=== PATIENT | male | born 1995 | race Caucasian/White ===

== ENCOUNTER 2020-07-23 14:07 | Emergency (ER) | payer OTHER ==
[2020-07-23 14:37] VITALS: BP 157/81; PULSE 88; BMI 28.1
[2020-07-23 14:48] VITALS: TEMP 97.3
== END 2020-07-23 15:16 | disposition home or self-care (01) ==
LOC: JERFT 14:07
DX: L02.415 Cutaneous abscess of right lower limb (principal)
CPT/HCPCS: 99282-25

== ENCOUNTER 2020-08-23 06:18 | Emergency (ER) | payer OTHER ==
[2020-08-23 06:52] VITALS: BP 130/70; PULSE 90; TEMP 97.6; BMI 28.1
[2020-08-23] MEDS ORDERED: KETOROLAC TROMETHAMINE 60 MG/2 ML VIAL IM ONE (07:17)
[2020-08-23] MEDS ORDERED: KETOROLAC TROMETHAMINE 60 MG/2 ML VIAL ONE (07:34)
== END 2020-08-23 08:35 | disposition home or self-care (01) ==
LOC: JER 06:18
PROC: 3E0233Z Introduction of Anti-inflammatory into Muscle, Percutaneous Approach (ICD-10-PCS; principal; 2020-08-23)
DX: M25.512 Pain in left shoulder (principal); S43.102A Unspecified dislocation of left acromioclavicular joint, initial encounter
CPT/HCPCS: 73030-TC-LT-FY; 99284-25

== ENCOUNTER 2020-12-01 08:46 | Emergency (ER) | payer OTHER ==
[2020-12-01 08:55] VITALS: BP 137/78; PULSE 76; TEMP 98.8; BMI 28.1
[2020-12-01] MEDS ORDERED: KETOROLAC TROMETHAMINE 30 MG/1 ML VIAL IM ONE (09:22)
[2020-12-01] MEDS ORDERED: CYCLOBENZAPRINE HCL 10 MG TABLET (FP) PO ONE (09:22)
[2020-12-01] MEDS ORDERED: CYCLOBENZAPRINE HCL 10 MG TABLET (FP) ONE (09:30)
[2020-12-01] MEDS ORDERED: KETOROLAC TROMETHAMINE 30 MG/1 ML VIAL ONE (09:30)
== END 2020-12-01 09:36 | disposition home or self-care (01) ==
LOC: JERFT 08:46
PROC: 3E0233Z Introduction of Anti-inflammatory into Muscle, Percutaneous Approach (ICD-10-PCS; principal; 2020-12-01)
DX: M54.5 Low back pain (principal)
CPT/HCPCS: 99284-25

== ENCOUNTER 2021-02-19 19:03 | Emergency (ER) | payer OTHER ==
[2021-02-19 19:46] VITALS: BP 130/72; PULSE 98; TEMP 98.3; BMI 28.1
[2021-02-19] MEDS ORDERED: IBUPROFEN 600 MG TABLET (FP) PO ONE ×2 (20:05→20:33)
== END 2021-02-19 21:29 | disposition home or self-care (01) ==
LOC: JERFT 19:03 → JER 19:03 → JERFT 21:29
DX: M25.552 Pain in left hip (principal)
CPT/HCPCS: 73523-TC-FY; 99283-25

== ENCOUNTER 2023-02-08 21:27 | Emergency (ER) | payer OTHER ==
[2023-02-08 21:35] VITALS: BP 124/79; PULSE 93; RESP 18; TEMP 98.2; BMI 28.1
== END 2023-02-09 | disposition home or self-care (01) ==
LOC: JERFT 21:27
DX: S83.411A Sprain of medial collateral ligament of right knee, initial encounter (principal); M25.561 Pain in right knee; W19.XXXA Unspecified fall, initial encounter; Y93.9 Activity, unspecified; Y92.9 Unspecified place or not applicable
CPT/HCPCS: 73562-TC-RT-FY; 99283-25

== ENCOUNTER 2023-07-29 19:06 | Emergency (ER) | payer OTHER ==
[2023-07-29 19:33] VITALS: BP 123/64; PULSE 77; RESP 20; TEMP 98.3; BMI 27.3
[2023-07-29] MEDS ORDERED: ACETAMINOPHEN 325 MG TABLET (FP) PO ONE (19:47)
[2023-07-29] MEDS ORDERED: ACETAMINOPHEN 325 MG TABLET (FP) ONE (20:06)
== END 2023-07-29 21:00 | disposition home or self-care (01) ==
LOC: JER 19:06
DX: M25.571 Pain in right ankle and joints of right foot (principal); R22.41 Localized swelling, mass and lump, right lower limb
CPT/HCPCS: 73610-TC-RT-FY; 73630-TC-RT-FY; 99283-25

== ENCOUNTER 2024-05-07 18:40 | Emergency (ER) | payer OTHER ==
[2024-05-07 19:00] VITALS: BP 142/77; PULSE 83; RESP 17; TEMP 97.6; BMI 26.6
[2024-05-07] MEDS ORDERED: ACETAMINOPHEN 500 MG TABLET (FP) PO ONE (19:16)
[2024-05-07] MEDS ORDERED: ACETAMINOPHEN 500 MG TABLET (FP) ONE (19:21)
== END 2024-05-07 19:40 | disposition home or self-care (01) ==
LOC: JERFT 18:40
DX: M79.671 Pain in right foot (principal)
CPT/HCPCS: 99283-25

== ENCOUNTER 2024-11-28 13:14 | Emergency (ER) | payer OTHER ==
[2024-11-28 13:21] VITALS: BP 129/69; PULSE 77; RESP 20; TEMP 97.6; BMI 28.2
== END 2024-11-28 14:30 | disposition home or self-care (01) ==
LOC: JERFT 13:14
PROC: 2W3CX1Z Immobilization of Right Lower Arm using Splint (ICD-10-PCS; principal; 2024-11-28)
DX: S62.320D Displaced fracture of shaft of second metacarpal bone, right hand, subsequent encounter for fracture with routine healing (principal); W22.8XXA Striking against or struck by other objects, initial encounter; Y99.0 Civilian activity done for income or pay
CPT/HCPCS: 73130-TC-RT-FY; 99283-25

== ENCOUNTER 2025-02-27 23:31 | Emergency (ER) | payer OTHER ==
[2025-02-27 23:38] VITALS: BP 129/83; PULSE 71; RESP 22; TEMP 98.2; BMI 25.0
[2025-02-28] MEDS: SODIUM CHLORIDE 0.9% 500 ML INFUS.BAG IV ONE (00:14)
[2025-02-28 00:57] LABS: ABSOLUTE IMMATURE GRANULOCYTES 0.02 x10^3/uL (0.0-0.031); BASOPHILS # 0.05 x10^3/uL (0.01-0.08); EOSINOPHIL % 3.4 % (0.8-7.0); EOSINOPHILS # 0.21 x10^3/uL (0.04-0.54); MCHC 34.0 g/dl (32.3-36.5); MEAN CELL VOLUME 93.5 fl (79.0-92.2); MEAN PLT VOLUME 9.6 fl (9.4-12.4); MONOCYTE # 0.44 x10^3/uL (0.30-0.82); MONOCYTE % 7.1 % (5.3-12.2); RDW 11.9 % (11.9-15.3)
[2025-02-28 01:16] LABS: GLUCOSE,RANDOM 58.0 mg/dL (74-106); TOT PROT 7.4 g/dl (6.4-8.2)
[2025-02-28 01:17] LABS: CO2 26.0 mmol/L (21-32)
[2025-02-28 01:18] LABS: ALK PHOS 79.0 U/L (40-150)
[2025-02-28 01:21] LABS: SGOT/AST 31.0 U/L (5-34); SGPT/ALT 30.0 U/L (0-55)
[2025-02-28 01:22] LABS: CREATININE 1.5 mg/dL (0.55-1.3)
== END 2025-02-28 01:43 | disposition home or self-care (01) ==
LOC: JER 23:31
DX: R53.1 Weakness (principal); M62.82 Rhabdomyolysis; T59.811A Toxic effect of smoke, accidental (unintentional), initial encounter; X58.XXXA Exposure to other specified factors, initial encounter; Y99.0 Civilian activity done for income or pay
CPT/HCPCS: 36415; 80053; 82375; 82550; 83605; 84484; 85025; 93005; 93010; 99284-25

== ENCOUNTER 2025-04-01 16:02 | Emergency (ER) | payer OTHER ==
[2025-04-01 16:11] VITALS: BP 137/71; PULSE 80; RESP 20; TEMP 98.2; BMI 25.0
== END 2025-04-01 16:45 | disposition home or self-care (01) ==
LOC: JER 16:02
DX: M25.512 Pain in left shoulder (principal)
CPT/HCPCS: 82962; 99283-25